=== PATIENT | male | born 1955 | race African-American/Black ===

== ENCOUNTER 2018-06-19 13:42 | Inpatient (IN) | payer OTHER ==
[~2018-06-19] VITALS: Ht 167.6 cm; Wt 67.6 kg
--- OUTSIDE RECORDS SUMMARY | 2018-06-19 14:51 | XMS REPORT | Clinical Summary ---
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 2.65 cm2 [facility] AoV Area, VTI 2.82 cm2 [facility] AoV Vmax 1.25 m/s [facility] IVS/LVPW,2D 0.60 [facility] Left Atrium Dimension 4.06 cm [facility] Anterior LV,d 5.92 cm [facility] LV,s 5.44 cm [facility] PV VMAX 0.89 m/s [facility] RVSP (TR) 38.86 mmHg [facility] TR Vpeak 2.69 mm/s [facility] MV E A ratio 0.79 mmHg [facility] TR pk grad 28.86 mmHg [facility] RVSP 38.86 mmHg [facility] Ao Root Diameter 3.49 cm [facility] LV SYS VOL 143.66 ml [facility] LV TURCIOS VOL 174.32 ml [facility] LV SV Teich 2D 30.66 ml [facility] LV Vol s Teich PSAX 143.66 ml [facility] LVOT CO 4.70 l/min [facility] LVOT HR for LVOT CO 88.32 bpm [facility] AoV Vmn 0.93 [facility] IVS s 2D 0.97 [facility] LV FS Cube 2D 8.08 [facility] LV FS Teich 2D 8.08 [facility] LVPW d Mmode 1.24 [facility] AoV VTI 0.19 m [facility] LV EF,2D 22.32 % [facility] MV AE ratio 1.27 [facility] LVOT Vmn 0.51 [facility] Aov area Vmn 2.53 cm2 [facility] LVOT mean grad 1.19 mmHg [facility] MAX Pred HR 157.58 [facility] 85 of MPHR 133.95 [facility] Calc MPHR 157.58 bpm [facility] IVS pct thck PLAX 12.05 % [facility] LV SV Cube 2D 46.23 ml [facility] LV vol d cube 2D 207.10 ml [facility] LV vol s cube 2D 160.87 ml [facility] LVPW pct thck PLAX 17.62 % [facility] LVPW s PLAX 1.69 cm [facility] MV Decel slope 7.49 m/s2 [facility] Pred Exer Dur R1 8.34 [facility] Pred METS R1 8.64 [facility] TV rest pulmonary artery 38.00 mmHg [facility] pressure Narrative Performed At [facility] The left ventricle chamber size is moderately enlarged. Left ventricular systolic function severely impaired. Left Ventricular ejection fraction is <20%. Left atrium size is mildly dilated. No pericardial effusion There is mild mitral valve regurgitation. Spectral Doppler shows impaired relaxation pattern of left ventricular diastolic filling. Stage II diastolic dysfunction with pseudonormal filling dynamics. Performing Organization Address City/State/Zipcode Phone Number [facility] [address] [place] [address] * Venous blood gas (12/09/2017 6:53 AM) Forward Air Controller/Air Officer NNB [facility]OLOGY AND GENOMIC MEDICINE Collection site RAC [facility] PATHOLOGY AND GENOMIC MEDICINE pH, venous 7.389 7.320 - 7.420 units [facility] OF PATHOLOGY AND GENOMIC MEDICINE pCO2, venous 54.1 (H) 45.0 - 51.0 mmHg [facility] OF PATHOLOGY AND GENOMIC MEDICINE pO2, venous 18.0 (L) 25.0 - 40.0 mmHg [facility] OF PATHOLOGY AND GENOMIC MEDICINE O2 saturation, venous 27.2 (LL) 40.0 - 70.0 % [facility] Comment: PATHOLOGY AND Results called to and read [facility] back by FRANCO MAGALLANES RN/ER (name/location) at 12/09/201707:12 ___ (date/time) by VPS_. Bicarbonate 32.7 (H) 21.0 - 28.0 mEq/L [facility] OF PATHOLOGY AND GENOMIC MEDICINE O2 content 5.6 VOL% [facility] OF PATHOLOGY AND GENOMIC MEDICINE FiO2, inspired O2% 21.0 % [facility] OF PATHOLOGY AND GENOMIC MEDICINE Carboxyhemoglobin 1.0 0.0 - 1.4 % [facility] Comment: PATHOLOGY AND Reference Ranges: GENOMIC MEDICINE Carboxyhemoglobin Non smoker: 0.0 - 2.0% Smoker: 2.1 - 5.0% Heavy smoker: 5.1 - 9% Methemoglobin 0.4 0.0 - 1.0 % [facility] OF PATHOLOGY AND GENOMIC MEDICINE Hemoglobin, blood gas 14.9 14.0 - 18.0 g/dL [facility] OF PATHOLOGY AND GENOMIC MEDICINE Specimen Blood Performing Organization Address City/State/Zipcode Phone Number [facility] [address] [place] [address] PATHOLOGY AND GENOMIC MEDICINE * Urinalysis screen and microscopy, with reflex to culture (12/09/2017 6:50 AM) Specimen site Clean catch [facility] PATHOLOGY AND GENOMIC MEDICINE Color, UA Colorless [facility] OF PATHOLOGY AND GENOMIC MEDICINE Appearance, UA Clear [facility] OF PATHOLOGY AND GENOMIC MEDICINE Specific gravity, UA 1.005 1.001 - 1.035 [facility] OF PATHOLOGY AND GENOMIC MEDICINE pH, UA 8.0 5.0 - 8.5 [facility] OF PATHOLOGY AND GENOMIC MEDICINE Protein, UA Negative Negative [facility] OF PATHOLOGY AND GENOMIC MEDICINE Glucose, UA Negative Negative [facility] OF PATHOLOGY AND GENOMIC MEDICINE Ketones, UA Negative Negative [facility] OF PATHOLOGY AND GENOMIC MEDICINE Bilirubin, UA Negative Negative [facility] OF PATHOLOGY AND GENOMIC MEDICINE Blood, UA Small (A) Negative [facility] OF PATHOLOGY AND GENOMIC MEDICINE Nitrite, UA Negative Negative [facility] OF PATHOLOGY AND GENOMIC MEDICINE Urobilinogen, UA Negative <2.0 [facility] OF PATHOLOGY AND GENOMIC MEDICINE Leukocyte esterase, UA Negative Negative [facility] OF PATHOLOGY AND GENOMIC MEDICINE WBC, UA <1 0 - 1 /HPF [facility] OF PATHOLOGY AND GENOMIC MEDICINE RBC, UA 6 (H) 0 - 5 /HPF [facility] OF PATHOLOGY AND GENOMIC MEDICINE Bacteria, UA None seen None seen [facility] OF PATHOLOGY AND GENOMIC MEDICINE Yeast, UA None seen [facility] OF PATHOLOGY AND GENOMIC MEDICINE Yeast with pseudohyphae, None seen [facility] OF UA PATHOLOGY AND GENOMIC MEDICINE Specimen Urine Performing Organization Address City/[facility]/Zipcode Phone Number [facility] [address] [place] [phone] PATHOLOGY AND GENOMIC MEDICINE * Urine culture (12/09/2017 6:50 AM) Urine culture SEE COMMENTComment: [facility] OF Bacteriuria screen negative. PATHOLOGY AND GENOMIC MEDICINE Specimen Urine Performing Organization Address City/[facility]/Zipcode Phone Number [facility] [address] [place] [phone] PATHOLOGY AND GENOMIC MEDICINE after 06/18/2017 Insurance Payer Benefit Subscriber ID Type Phone Address Plan / Group M[employer] EX[employer]ANGE [employer] xxxxxxxxxxx Exchange FROM [facility] [address]
[2018-06-19 15:24] LABS: BASOPHILS % 0.7 % (0.0-1.0); EOSINOPHILS # (AUTO) 0.1 (0.0-0.4); EOSINOPHILS % 1.5 % (0.0-6.0); HEMATOCRIT 46.7 % (38.2-49.6); HEMOGLOBIN 15.7 g/dL (14.0-18.0); LYMPHOCYTES # (AUTO) 1.8 (1.0-3.2); LYMPHOCYTES % 32.1 % (18.0-39.1); MEAN CORPUSCULAR HEMOGLOBIN 30.8 pg (28-32); MEAN CORPUSCULAR HGB CONC 33.6 g/dL (31-35); MEAN CORPUSCULAR VOLUME 91.7 fL (81-99); MONOCYTES # (AUTO) 0.4 (0.2-0.8); MONOCYTES % 7.8 % (4.4-11.3); NEUTROPHILS # (AUTO) 3.2 (2.1-6.9); NEUTROPHILS % 57.7 % (38.7-80.0); PLATELET COUNT 172 x10e3/uL (140-360); RED BLOOD COUNT 5.09 x10e6/uL (4.3-5.7); RED CELL DISTRIBUTION WIDTH 15.3 % (11.7-14.4)
[2018-06-19 15:32] LABS: INR 1.05; PARTIAL THROMBOPLASTIN TIME 27.2 seconds (23.8-35.5); PROTHROMBIN TIME 14.7 seconds (11.9-14.5)
[2018-06-19 15:42] LABS: ALBUMIN 3.4 g/dL (3.5-5.0); ALBUMIN/GLOBULIN RATIO 1.1 (0.8-2.0); ANION GAP 14.5 mmol/L (8-16); CALCIUM 9.3 mg/dL (8.4-10.2); CREATININE, SERUM 1.34 mg/dL (0.72-1.25); POTASSIUM 3.5 mmol/L (3.5-5.1)
[2018-06-19 15:48] LABS: CREATINE KINASE MB 4.7 ng/mL (0-5.0)
[2018-06-19] MEDS ORDERED: FUROSEMIDE INJ 10 MG/ML 4 ML VIAL IV ONE (16:30)
--- NOTE | 2018-06-19 16:44 | Diagnostic Imaging Report ---
EXAMINATION: CHEST 2 VIEWS INDICATION: ^SOB ^[id number] ^[id number] ^N COMPARISON: None FINDINGS: PA and lateral views TUBES and LINES: None. LUNGS: Lungs are well inflated. Bilateral lower lobe predominant patchy airspace opacities. Bilateral central pulmonary congestion. PLEURA: Possible trace right pleural effusion. No pneumothorax. HEART AND MEDIASTINUM: Moderate enlargement of the cardiac silhouette. BONES AND SOFT TISSUES: No acute osseous lesion. Soft tissues are unremarkable. UPPER ABDOMEN: No free air under the diaphragm. IMPRESSION: Bilateral central pulmonary vascular congestion with suspected multifocal pneumonia in the proper clinical setting. Continue to follow-up. Signed by: Dr. Mercedes Hilario M.D. on 06/19/2018 4:41 PM
[2018-06-19] MEDS ORDERED: SODIUM CHLORIDE FLUSH 10 ML SYR INJ PRN (17:15)
[2018-06-19] MEDS ORDERED: LASIX20 MG PO (17:35)
[2018-06-19] MEDS ORDERED: POTASSIUM CHLO10 ME1 PO (17:35)
[2018-06-19] MEDS ORDERED: ENTRESTO PO (17:35)
[2018-06-19] MEDS ORDERED: L-CARNITINE500 M1 PO (17:35)
[2018-06-19] MEDS ORDERED: COQ-10100 MG PO (17:35)
[2018-06-19] MEDS ORDERED: PENTOXIFYLLINE400 MG PO (17:35)
[2018-06-19] MEDS: CEFTRIAXONE SOD 1 GM VIAL IV SCH (17:46)
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
--- OUTSIDE RECORDS SUMMARY | 2018-06-19 17:51 | XMS REPORT ---
Author [facility] Address Unknown Phone Unavailable Care Team Providers Care [employer] Name Role Phone Randell BULL Unavailable Unavailable Problems This patient has no known problems. Allergies, Adverse Reactions, Alerts This patient has no known allergies or adverse reactions. Medications This patient has no known medications. Results Test Description Test Time Test Comments Text Results Atomic Results Result Comments CHEST 2 VIEWS 2018-06-19 16:40:[address] [address] Patient Name: STALIN OSBORN MR #: [id number] : 1955 Age/Sex: 62/M Req #: [id number] Adm Physician: Ordered by: LASHAE BULL MD Report #: [id number] Location: ER Room/Bed: Procedure: [id number] DX/CHEST 2 VIEWS Exam Date: 06/19/18 Exam Time: 1550 REPORT STATUS: Signed EXAMINATION: CHEST 2 VIEWS INDICATION: SOB [id number] N COMPARISON: None FINDINGS: PA and lateral views TUBES and LINES: None. LUNGS: Lungs are well inflated. Bilateral lower lobe predominant patchy airspace opacities. Bilateral central pulmonary congestion. PLEURA: Possible trace right pleural effusion. No pneumothorax. HEART AND MEDIASTINUM: Moderate enlargement of the cardiac silhouette. BONES AND SOFT TISSUES: No acute osseous lesion. Soft tissues are unremarkable. UPPER ABDOMEN: No free air under the diaphragm. IMPRESSION: Bilateral central pulmonary vascular congestion with suspected multifocal pneumonia in the proper clinical setting. Continue to follow-up. Signed by: Dr. Buck Fairbanks M.D. on 06/19/2018 4:41 PM Dictated By: BUCK FAIRBANKS MD 40 Transcribed By: ERNIE on 06/19/181640 COPY TO: LASHAE BULL MD
[2018-06-19 18:45] VITALS: BP 129/80
--- NOTE | 2018-06-19 18:56 | Diagnostic Imaging Report ---
EXAMINATION: CHEST SINGLE (PORTABLE) INDICATION: ^CHF ^[id number] ^1830 COMPARISON: Chest radiograph 06/19/2018 at 1838 FINDINGS: AP view TUBES and LINES: None. LUNGS: Lungs are well inflated. Hilar fullness with interstitial opacities. Bibasilar opacities, likely atelectasis. PLEURA: Small pleural effusions bilaterally. HEART AND MEDIASTINUM: Stable enlargement of the cardiac silhouette. BONES AND SOFT TISSUES: No acute osseous lesion. Soft tissues are unremarkable. UPPER ABDOMEN: No free air under the diaphragm. IMPRESSION: Findings suggestive of cardiogenic edema with interstitial edema, small pleural effusions, and enlarged cardiac silhouette. Bibasilar opacities likely represent atelectasis from adjacent effusions. Superimposed infection not excluded. Signed by: DR. Lisandro Palacios MD on 06/19/2018 6:53 PM
[2018-06-19 20:00] VITALS: BP 129/80
[2018-06-19 20:14] VITALS: BP 129/80
[2018-06-19 20:31] VITALS: BP 123/79
[2018-06-19 23:51] LABS: CREATINE KINASE MB 4.3 ng/mL (0-5.0)
[2018-06-20] VITALS (7 sets, daily range): BP systolic 121–139; BP diastolic 86–102
[2018-06-20 05:10] LABS: BASOPHILS # (AUTO) 0.1 (0.0-0.1); EOSINOPHILS # (AUTO) 0.1 (0.0-0.4); EOSINOPHILS % 2.5 % (0.0-6.0); HEMOGLOBIN 14.5 g/dL (14.0-18.0); LYMPHOCYTES # (AUTO) 1.6 (1.0-3.2); LYMPHOCYTES % 30.7 % (18.0-39.1); MEAN CORPUSCULAR HEMOGLOBIN 30.5 pg (28-32); MEAN CORPUSCULAR HGB CONC 33.7 g/dL (31-35); MEAN CORPUSCULAR VOLUME 90.5 fL (81-99); MONOCYTES # (AUTO) 0.4 (0.2-0.8); MONOCYTES % 7.4 % (4.4-11.3); NEUTROPHILS % 58.4 % (38.7-80.0); PLATELET COUNT 157 x10e3/uL (140-360); RED BLOOD COUNT 4.75 x10e6/uL (4.3-5.7); RED CELL DISTRIBUTION WIDTH 15.3 % (11.7-14.4)
[2018-06-20 05:30] LABS: ANION GAP 15.5 mmol/L (8-16); BLOOD UREA NITROGEN 14 mg/dL (7-26); BUN/CREATININE RATIO 10 (6-25); CALCIUM 8.6 mg/dL (8.4-10.2); CARBON DIOXIDE 27 mmol/L (22-29); CHLORIDE 105 mmol/L (98-107); CREATININE, SERUM 1.39 mg/dL (0.72-1.25); EST GLOMERULAR FILTRATION RATE > 60 ML/MIN (60-); GLUCOSE 107 mg/dL (74-118); POTASSIUM 3.5 mmol/L (3.5-5.1); SODIUM 144 mmol/L (136-145)
[2018-06-20 05:50] LABS: CREATINE KINASE MB 4.5 ng/mL (0-5.0)
--- NOTE | 2018-06-20 07:26 | Diagnostic Imaging Report ---
EXAMINATION: CHEST SINGLE (PORTABLE) INDICATION: ^CHF ^[id number] ^0530 ^N COMPARISON: Chest radiograph 06/19/2018 1530 9:00 PM FINDINGS: AP view TUBES and LINES: None. LUNGS: Lungs are well inflated. Worsening bilateral pulmonary edema. Bibasilar atelectasis. PLEURA: Possible trace left pleural effusion. HEART AND MEDIASTINUM: Stable moderate enlargement of the cardiac silhouette. BONES AND SOFT TISSUES: No acute osseous lesion. Soft tissues are unremarkable. UPPER ABDOMEN: No free air under the diaphragm. IMPRESSION: Bilateral pulmonary edema, worse since prior exam. Signed by: Dr. Mercedes Hilario M.D. on 06/20/2018 7:22 AM
[2018-06-20] MEDS ORDERED: FUROSEMIDE INJ 10 MG/ML 4 ML VIAL IV SCH (09:00)
[2018-06-20] MEDS: POTASSIUM CHLORIDE 20 MEQ TAB CR PO SCH ×2 (09:06→16:43)
[2018-06-20] MEDS: FUROSEMIDE INJ 10 MG/ML 2 ML VIAL IV SCH ×2 (09:06→16:43)
--- NOTE | 2018-06-20 13:20 | Consultation ---
DATE OF CONSULTATION: CARDIOLOGY CONSULTATION REASON FOR CONSULTATION: Shortness of breath. HISTORY OF PRESENT ILLNESS: Mr. Tyler is a pleasant 62-year-old man with a history of hypertension, who presents to [facility] via the emergency department with complaints of progressive shortness of breath and chest discomfort. He was noted to have central pulmonary vascular congestion and possible multifocal pneumonia versus pulmonary edema, moderate enlargement of cardiac silhouette on chest x-ray. He was initiated on furosemide 20 mg IV b.i.d. as well as ceftriaxone with some improvement in his symptoms. He denies any recent fevers. He has been afebrile throughout his hospital stay. Denies any prior cardiac history. Feels better. No edema or orthopnea reported, no paroxysmal nocturnal dyspnea. REVIEW OF SYSTEMS: A 12-system review negative except for as noted above. PAST MEDICAL HISTORY: Significant for hypertension. SOCIAL HISTORY: Denies smoking, alcohol or drugs. FAMILY HISTORY: Good family support. Has a family history of hypertension. PHYSICAL EXAMINATION VITAL SIGNS: Temperature 98.9, heart rate 94, respiratory rate is 21, blood pressure 139/94, O2 sat 94% on 2 liters per minute nasal cannula. GENERAL: No acute distress. NECK: JVD elevated to lower third of neck. No carotid bruits. CHEST: Decreased breath sounds in bilateral bases and scattered rales. CARDIOVASCULAR: Regular rate and rhythm. Normal S1 and S2. ABDOMEN: Soft. EXTREMITIES: Trace edema. CARDIOVASCULAR MEDICATIONS: Reviewed. 1. Furosemide 20 mg IV b.i.d. 2. Potassium chloride 20 mEq b.i.d. STUDIES: Reviewed. White blood cells 5.1, hemoglobin 14.5, platelets 157. INR 1.05, PTT 27. Creatinine 1.3, sodium 144, potassium 3.5, bicarbonate 27, glucose 107. Serial cardiac enzymes negative. BNP 3400. Total protein 6.6, albumin 3.4. CHEST X-RAY: As described above. ELECTROCARDIOGRAM: Sinus rhythm with PVCs and left ventricular hypertrophy, QRS widening, nonspecific repolarization abnormalities. ASSESSMENT 1. Clinically in acute heart failure, enlarged cardiomediastinal silhouette, left ventricular hypertrophy by electrocardiogram criteria. 2. Premature ventricular contractions. 3. Hypertension, history of. 4. Chest x-ray infiltrates concerning for pneumonia versus pulmonary edema. RECOMMENDATIONS 1. I agree with diuretic trial. 2. Echocardiogram has been ordered and is pending. Will review once available. 3. Uptitrate antihypertensives and adjust medications accordingly. 4. Continue coverage with antibiotics for now. Job#: [id number] EV
[2018-06-20] MEDS: CARVEDILOL 3.125 MG TAB PO SCH (16:43)
[2018-06-20] MEDS: CEFTRIAXONE SOD 1 GM VIAL IV SCH (16:43)
--- NOTE | 2018-06-20 17:32 | History and Physical ---
HISTORY OF PRESENT ILLNESS: Patient is a 62-year-old male with past medical history positive for hypertension and congestive heart failure. Came here with shortness of breath when lying down and dyspnea on exertion. Patient was found to have acute pulmonary edema and was started on IV Lasix. He is doing a little better right now. REVIEW OF SYSTEMS CARDIOVASCULAR: No chest pain or palpitations. RESPIRATORY: He does complain of shortness of breath when lying down and when walking. He has orthopnea. GASTROINTESTINAL: No nausea. No vomiting. No diarrhea. GENITOURINARY: No frequency. No dysuria. ALLERGIES: NOT ALLERGIC TO ANY MEDICATION. SOCIAL HISTORY: He does not smoke. He does not drink. PAST MEDICAL HISTORY: Positive for hypertension and congestive heart failure. PHYSICAL EXAMINATION: Vital signs: Blood pressure 125/88, temperature 98.1, heart rate 97 per minute, respiratory rate 19 per minute. Oxygen saturation 97%. Chest x-ray showed congestive failure. BMP showed sodium 144, potassium 3.5, chloride 105, CO2 27, BUN 14, creatinine 1.39. Glucose 107. On the CBC, white blood count 5.15; hemoglobin 14.5; hematocrit 43.0; platelet count 157,000. PT 14.7, INR 1.05, PTT 27.2. AST 50, ALT 126, total bilirubin 1.3, alkaline phosphatase 68. BNP is extremely elevated. FINAL IMPRESSION 1. Gkoyi-ga-yfbnuvy systolic congestive heart failure. 2. Elevated liver function tests. 3. Hypertension with congestive heart failure. 4. Hypertension with chronic renal insufficiency. 5. Chronic renal insufficiency, stage 3. PLAN OF TREATMENT: We are going to continue ceftriaxone 1 gram IV once a day for the concerns about pneumonia. Continue furosemide 20 mg IV push twice a day, potassium chloride 20 mEq twice a day, carvedilol 3.125 mg twice a day and losartan 12.5 mg daily. Actually, the patient is taking Zestril, so we are going to discontinue the losartan. We are going to evaluate the elevated LFTs with a liver ultrasound, antinuclear antibodies, hepatitis profile, iron, ceruloplasmin, antimitochondrial antibodies. I am going to get a gastroenterology consult with Dr. Trey Babcock. Dr. Guillermo Felix, retail team leader, has seen the patient also. The EKG showed sinus rhythm with occasional PVCs and left ventricular hypertrophy. Case discussed with family. Time spent 45 minutes. Job#: [id number]
--- NOTE | 2018-06-20 18:06 | Diagnostic Imaging Report ---
EXAM: Right Upper Quadrant Ultrasound INDICATION: Elevated LFTs. ^elevated LFT COMPARISON: None. TECHNIQUE: Transverse and longitudinal images of the right upper abdomen were obtained. FINDINGS: Liver: Size: 14.5 cm in the right midclavicular line, normal Appearance: Normal echogenicity, smooth contour Mass: No focal masses Gallbladder: Stones/Sludge: None Wall: 0.2 cm Appearance: No pericholecystic fluid or hydrops. Gallbladder fold. 0.2 cm lesion along the nondependent aspect of the body without comet tail artifact or shadowing, likely a polyp. Sonographic Mejia's Sign: Negative Bile Ducts: Intrahepatic Ducts: No dilatation Extrahepatic Ducts: Common bile duct measures 0.5 cm, no dilatation Pancreas: Incompletely visualized due to overlying bowel gas, but no abnormality identified involving the visualized portions of the pancreas. Right Kidney: Location: Pelvis. Size: 7.2 cm Echogenicity: Normal Parenchymal thickness: Normal Collecting system: No hydronephrosis Stones: None Cyst/Mass: None Vessels: Aorta: Visualized portions are normal Inferior Vena Cava: Visualized portions are normal Main Portal Vein: 0.9 cm, normal size with hepatopetal flow. Free Fluid: Small right pleural effusion. IMPRESSION: 1. Normal echogenicity of the liver. No hepatomegaly. No biliary ductal dilatation. 2. Tiny gallbladder polyp. 3. Small right kidney located in the pelvis. 4. Small right pleural effusion. Signed by: DR. Lisandro Palacios MD on 06/20/2018 6:03 PM
[2018-06-20] MEDS ORDERED: IBUPROFEN 600 MG TAB PO PRN (22:00)
[2018-06-20] MEDS: PENTOXIFYLLINE 400 MG TAB CR PO SCH (22:10)
[2018-06-21] VITALS (7 sets, daily range): BP systolic 121–164; BP diastolic 86–99
[2018-06-21 06:06] LABS: ALBUMIN 3.1 g/dL (3.5-5.0); ALBUMIN/GLOBULIN RATIO 1.1 (0.8-2.0); ANION GAP 16.1 mmol/L (8-16); CALCIUM 8.9 mg/dL (8.4-10.2); CREATININE, SERUM 1.54 mg/dL (0.72-1.25); POTASSIUM 4.1 mmol/L (3.5-5.1)
[2018-06-21] MEDS: FUROSEMIDE INJ 10 MG/ML 2 ML VIAL IV SCH ×2 (09:14→17:29)
[2018-06-21] MEDS: LOSARTAN POTASSIUM 25 MG TAB PO SCH (09:14)
[2018-06-21] MEDS: CARVEDILOL 3.125 MG TAB PO SCH ×2 (09:14→17:30)
[2018-06-21] MEDS: POTASSIUM CHLORIDE 20 MEQ TAB CR PO SCH ×2 (09:21→17:30)
[2018-06-21] MEDS: PENTOXIFYLLINE 400 MG TAB CR PO SCH ×3 (09:21→21:05)
--- NOTE | 2018-06-21 13:20 | Progress Note ---
DATE: INTERNAL MEDICINE PROGRESS NOTE SUBJECTIVE: A 62-year-old male patient came here with acute exacerbation of systolic congestive heart failure. He is feeling better today. PHYSICAL EXAM: VITAL SIGNS: Blood pressure 136/98. Temperature 97.7. Heart rate 60 per minute, respiratory rate 18 per minute, oxygen saturation 100%. HEART: Shows regular rhythm. Normal S1 and S2 sounds. LUNGS: Clear bilaterally. ABDOMEN: Soft. EXTREMITIES: Show no evidence of cyanosis, edema or trauma. On the BMP: Sodium 143, potassium 4.1, chloride 103, CO2 28, BUN 20, creatinine 1.54, glucose 132. On the CBC: White blood count 5.15, hemoglobin 14.5, hematocrit 43.0, platelet count 157,000. PT 14.7, INR 1.05, PTT 27.2. AST 41, ALT 106, total bilirubin 0.8, alkaline phosphatase of 64. Echocardiogram has been done and it showed a very low ejection fraction of 15% to 20%, trace aortic insufficiency, mild to moderate mitral regurgitation and trace mild pulmonary insufficiency. FINAL IMPRESSION: 1. Acute on chronic systolic congestive heart failure. 2. Hypertension with chronic insufficiency. 3. Chronic insufficiency stage 3 4. Elevated liver function tests. PLAN OF TREATMENT: Continue with Lasix 20 mg twice a day. Potassium 20 mEq twice a day. Carvedilol 3.125 mg twice a day. Losartan 12.5 mg daily. Pentoxifylline 400 mg 3 times a day. Ibuprofen 600 mg q.6 hours is going to be discontinued because of the renal insufficiency. Because of a questionable pneumonia, he is on ceftriaxone 1 gram IV once a day. Cardiology consult with Dr. Felix has been requested along with a consult with Dr. Trey Babcock for gastroenterology due to elevated LFTs. Workup for the LFTs is in progress including liver ultrasound, antinuclear antibodies, iron, ferritin, ceruloplasmin level, antimitochondrial antibiotics. Tentative discharge tomorrow. Job#: [id number] AJNA
[2018-06-21] MEDS: ASPIRIN 81 MG CHEW TAB PO SCH (14:00)
[2018-06-21] MEDS: SODIUM CHLORIDE 0.9% 1000ML 1,000 ML IV SCH ×2 (14:00→21:15)
--- NOTE | 2018-06-21 14:23 | Progress Note ---
DATE: June 21, 2018 CARDIOLOGY PROGRESS NOTE SUBJECTIVE: No complaints. OBJECTIVE VITAL SIGNS: Temperature 97 degrees, heart rate 97, respiratory rate 18, blood pressure 134/96, O2 sat 98% on 2 liters per minute nasal cannula. GENERAL: No acute distress. Alert. NECK: No JVD. CHEST: Clear to auscultation. CARDIOVASCULAR: Regular rate and rhythm. Normal S1 and S2. No S3, no S4. No murmurs or rubs. ABDOMEN: Soft, nontender. EXTREMITIES: Trace edema. CARDIOVASCULAR MEDICATIONS: Reviewed. 1. Trental 400 mg t.i.d. 2. Losartan 12.5 mg daily. 3. Carvedilol 3.125 mg every 12 hours. 4. Furosemide 20 mg b.i.d. IV. STUDIES: White blood cells 5.1, hemoglobin 14.5, platelets 157. INR 1. Sodium 143, potassium 4.1, chloride 103, bicarbonate 28, BUN 20, creatinine 1.5, glucose 132, calcium 8.9. AST is 41, ALT 106, alk phos 64. Peak troponin was 0.06. BNP was 3400. Total protein 6, albumin 3.1. TELEMETRY: In sinus rhythm. ASSESSMENT 1. Acute severe systolic heart failure with left ventricular ejection fraction 20% to 25%, new diagnosis. 2. Premature ventricular contractions. 3. Left ventricular hypertrophy on electrocardiogram. 4. Hypertension with hypertensive heart disease with heart failure. 5. Pulmonary edema. 6. Renal failure from acute on chronic. RECOMMENDATIONS: Given findings, will benefit from coronary angiography and possible intervention. Indications, alternatives, risks and benefits have been discussed with patient. Will schedule. Somewhat elevated risk for contrast-induced nephropathy given labile renal function. Suspect moderate baseline chronic kidney disease with labile function given ongoing diuresis and cardiorenal component possibly. Add aspirin. Job#: [id number] EV
[2018-06-21 16:33] LABS: ANION GAP 13.1 mmol/L (8-16); CALCIUM 8.8 mg/dL (8.4-10.2); CREATININE, SERUM 1.51 mg/dL (0.72-1.25); POTASSIUM 4.1 mmol/L (3.5-5.1)
[2018-06-21] MEDS: CEFTRIAXONE SOD 1 GM VIAL IV SCH (17:30)
[2018-06-21] MEDS: ACETAMINOPHEN 325 MG TAB PO PRN ×2 (17:58→22:00)
[2018-06-22] VITALS (9 sets, daily range): BP systolic 99–139; BP diastolic 52–108
[2018-06-22] MEDS: SODIUM CHLORIDE 0.9% 1000ML 1,000 ML IV SCH (05:00)
[2018-06-22 06:03] LABS: BASOPHILS % 0.4 % (0.0-1.0); EOSINOPHILS # (AUTO) 0.1 (0.0-0.4); EOSINOPHILS % 1.8 % (0.0-6.0); HEMATOCRIT 44.2 % (38.2-49.6); HEMOGLOBIN 14.9 g/dL (14.0-18.0); LYMPHOCYTES # (AUTO) 1.3 (1.0-3.2); LYMPHOCYTES % 26.2 % (18.0-39.1); MEAN CORPUSCULAR HGB CONC 33.7 g/dL (31-35); MEAN CORPUSCULAR VOLUME 92.1 fL (81-99); MONOCYTES # (AUTO) 0.3 (0.2-0.8); MONOCYTES % 5.8 % (4.4-11.3); NEUTROPHILS # (AUTO) 3.3 (2.1-6.9); NEUTROPHILS % 65.4 % (38.7-80.0); PLATELET COUNT 166 x10e3/uL (140-360); RED CELL DISTRIBUTION WIDTH 15.3 % (11.7-14.4)
[2018-06-22 06:41] LABS: ALANINE AMINOTRANSFERASE 95 IU/L (0-55); ALBUMIN 3.1 g/dL (3.5-5.0); ALBUMIN/GLOBULIN RATIO 1.1 (0.8-2.0); ALKALINE PHOSPHATASE 57 IU/L (40-150); BLOOD UREA NITROGEN 20 mg/dL (7-26); BUN/CREATININE RATIO 15 (6-25); CALCIUM 8.9 mg/dL (8.4-10.2); CARBON DIOXIDE 26 mmol/L (22-29); CHLORIDE 106 mmol/L (98-107); CREATININE, SERUM 1.33 mg/dL (0.72-1.25); EST GLOMERULAR FILTRATION RATE > 60 ML/MIN (60-); GLUCOSE 149 mg/dL (74-118); SODIUM 143 mmol/L (136-145)
[2018-06-22] MEDS: ASPIRIN 81 MG CHEW TAB PO SCH (09:00)
[2018-06-22] MEDS ORDERED: HEPARIN SOD/SOD CHLORIDE 2,000 ML ONE (09:33)
[2018-06-22] MEDS ORDERED: LIDOCAINE HCL 1% LOCAL INJ 20 ML VIAL ONE (09:33)
[2018-06-22] MEDS ORDERED: IOPAMIDOL 370 MG/ML 200 ML INFUS..BTL INJ ONE (09:34)
[2018-06-22] MEDS ORDERED: HEPARIN SOD (PORCINE) 1000 UNIT/ML 30ML ONE (09:37)
[2018-06-22] MEDS ORDERED: VERAPAMIL HCL 2.5 MG/ML 2 ML VIAL ONE (09:37)
[2018-06-22] MEDS ORDERED: FENTANYL CITRATE/PF 100MCG/2 ML INJ ONE (09:38)
[2018-06-22] MEDS ORDERED: MIDAZOLAM HCL 2 MG/2 ML VIAL ONE (09:38)
[2018-06-22] MEDS ORDERED: NITROGLYCERIN/D5W 200 MCG/ML 0 ML ONE (09:39)
[2018-06-22] MEDS ORDERED: SODIUM CHLORIDE 0.9% 1000ML 1,000 ML ONE (09:39)
--- NOTE | 2018-06-22 10:52 | Progress Note ---
DATE: June 22, 2018 CARDIOLOGY PROGRESS NOTE SUBJECTIVE: No complaints. OBJECTIVE VITALS: Temperature 97 degrees, heart rate 104, respiratory rate 18, blood pressure 133/104, O2 sat 91% on nasal cannula. GENERAL: No acute distress. Alert. NECK: No JVD. CHEST: Clear to auscultation. CARDIOVASCULAR: Regular rate and rhythm. Normal S1 and S2. No S3. No S4. ABDOMEN: Soft. EXTREMITIES: No edema. CARDIOVASCULAR MEDICATIONS 1. Carvedilol 3.125 mg b.i.d. 2. 25 mg t.i.d. 3. Furosemide 20 mg b.i.d IV. 4. Aspirin 81 mg daily. 5. Losartan 12.5 mg daily. STUDIES: Reviewed. Creatinine 1.3, potassium 4. ASSESSMENT 1. Status post cardiac catheterization today with no significant obstructive coronary artery disease. 2. Nonischemic cardiomyopathy. 3. Acute severe systolic heart failure, new diagnosis. 4. Hypertension, uncontrolled: Left ventricular ejection fraction 20% to 25%. 5. Left ventricular hypertrophy. 6. Pulmonary edema. 7. Renal failure, [id number]. 8. Hypertensive heart disease with heart failure. RECOMMENDATIONS: Nonischemic cardiomyopathy. No indications for coronary intervention at this point in time. Continue up titration of beta elizabeth and LOLA inhibitor as blood pressure allows. Transition to oral diuretics. Consider Life Vest. Will need followup after 3 months of ejection fraction to assess ICD candidacy. Case discussed with the patient and family members. Job#: [id number] EILEEN
--- NOTE | 2018-06-22 13:17 | Operative Report ---
DATE OF PROCEDURE: June 22, 2018 CARDIAC CATHETERIZATION REPORT PROCEDURE INDICATION: Severe systolic heart failure with LVEF 20% to 25%, new diagnosis. PROCEDURES PERFORMED 1. Selective coronary angiography. 2. Right common femoral artery 6-Mosotho Angio-Seal closure. PROCEDURE COMPLICATIONS: None. ESTIMATED BLOOD LOSS: Less than 15 mL. PROCEDURE SUMMARY: After consent was obtained, patient was prepped and draped in a sterile fashion, and the right femoral site was locally infiltrated with 2% lidocaine. Access was obtained using micropuncture kit, and a short 6-Mosotho sheath was placed. All catheters were railed over a leading wire to their respective positions. A JL-4 and a JR-4 6-Mosotho catheters were used for engagement of left main and then the right coronary artery respectively. The aortic valve was not crossed. The following findings were observed: Luminal irregularities were noted throughout the coronary trees with no evidence of significant obstructive coronary artery disease. 1. The left main is large in caliber with luminal irregularities, gives an LAD and a circumflex. 2. The LAD has luminal irregularities and multiple diagonals and septal perforators and courses around to the apex where it wraps around and ends. 3. The circumflex has luminal irregularities and gives 2 obtuse marginals. 4. The right coronary artery has luminal irregularities and gives a terminal RPDA and RPLV. CONCLUSION 1. Nonischemic cardiomyopathy. 2. Severe systolic heart failure. RECOMMENDATIONS: Medical aggressive therapy. Job#: [id number] EV
[2018-06-22] MEDS: LOSARTAN POTASSIUM 25 MG TAB PO SCH (14:35)
[2018-06-22] MEDS: FUROSEMIDE INJ 10 MG/ML 2 ML VIAL IV SCH (14:35)
[2018-06-22] MEDS: POTASSIUM CHLORIDE 20 MEQ TAB CR PO SCH (14:35)
[2018-06-22] MEDS: CEFTRIAXONE SOD 1 GM VIAL IV SCH (16:41)
[2018-06-22] MEDS ORDERED: COREG3.125 MG PO (16:43)
[2018-06-22] MEDS ORDERED: LOSARTAN POTASS25 MG PO (16:43)
[2018-06-22] MEDS ORDERED: ASPIRIN81 MG PO (16:44)
[2018-06-22] MEDS ORDERED: CARVEDILOL 3.125 MG TAB PO SCH (17:00)
--- NOTE | 2018-06-22 17:46 | Discharge Summary ---
HISTORY OF PRESENT ILLNESS: A 62-year-old male who had a past medical history positive for congestive heart failure came here with shortness of breath. He was found to have acute systolic congestive heart failure. Started on Lasix, Coreg and losartan. Patient is doing much, much better. Patient had a cardiac cath done by Dr. Felix. It showed nonischemic cardiomyopathy and severe systolic heart failure. PHYSICAL EXAM: Blood pressure 99/52, temperature 96.7, heart rate 108 per minute, respiratory rate 18 per minute, oxygen saturation 99%. HEART: Shows regular rhythm. Normal S1 and S2 sounds. LUNGS: Clear bilaterally. ABDOMEN: Soft. EXTREMITIES: Show no evidence of cyanosis, edema or trauma. FINAL IMPRESSIONS: 1. Acute exacerbation of systolic congestive heart failure, nonischemic in nature. 2. Chronic renal insufficiency stage 3. PLAN OF TREATMENT: Continue with Lasix 20 mg twice a day. Potassium chloride 20 mEq twice a day. Carvedilol 6.25 mg twice a day. Losartan 12.5 mg daily. Tylenol 325 mg q.4 hours[address] Felix also wrote a prescription for Plavix. Follow with primary care physician and Dr. Rust, cardiology, in a week. He had a LifeVest also. DONAVON CHRISTINE MD Job#: [id number] EV
--- NOTE | 2018-06-23 01:07 | Discharge Summary ---
ADDENDUM Patient is told to be off work for 2 weeks and he is not supposed to climb or do any type of intense physical activity and to come to the hospital. He is tolerating the fluid without getting shortness of breath or chest pains. DONAVON CHRISTINE MD Job#: [id number] MATT
== END 2018-06-22 17:17 | disposition home or self-care (01) | DRG 286 ==
LOC: ER 13:42 → ERHOLD 17:48 → IMCU 18:39 → OBSVTOIN 06-20 17:20 → MED/SURG 06-20 21:17
PROVIDERS: ADMIT Internal Medicine; ATTEND Internal Medicine
PROC: 4A023N7 Measurement of Cardiac Sampling and Pressure, Left Heart, Percutaneous Approach (ICD-10-PCS; principal; 2018-06-22)
PROC: B2111ZZ Fluoroscopy of Multiple Coronary Arteries using Low Osmolar Contrast (ICD-10-PCS; 2018-06-22)
DX: I13.0 Hypertensive heart and chronic kidney disease with heart failure and stage 1 through stage 4 chronic kidney disease, or unspecified chronic kidney disease (principal); I50.23 Acute on chronic systolic (congestive) heart failure; J81.1 Chronic pulmonary edema; I42.9 Cardiomyopathy, unspecified; E11.65 Type 2 diabetes mellitus with hyperglycemia; I25.10 Atherosclerotic heart disease of native coronary artery without angina pectoris; Z95.1 Presence of aortocoronary bypass graft; Z87.891 Personal history of nicotine dependence; Z79.01 Long term (current) use of anticoagulants; Z95.2 Presence of prosthetic heart valve; N18.3 Chronic kidney disease, stage 3 (moderate); I49.3 Ventricular premature depolarization
CPT/HCPCS: 36415; 71045; 71046; 76705; 80048; 80053; 82390; 82550; 82553; 83540; 83880; 84484; 85025; 85610; 85730; 86039; 86255; 93005; 93306; 93454; 99284; C1766; C1769; G0378; J0696; J1644; J1940; J2001; J2250; J7030; Q9967

== ENCOUNTER 2018-06-23 00:57 | Emergency (ER) | payer OTHER ==
[~2018-06-23] VITALS: Ht 167.6 cm; Wt 67.6 kg
[~2018-06-23 00:57] MED LIST: ASPIRIN81 MG PO; COQ-10100 MG PO; COREG3.125 MG PO; ENTRESTO PO; L-CARNITINE500 M1 PO; LASIX20 MG PO; LOSARTAN POTASS25 MG PO; PENTOXIFYLLINE400 MG PO; POTASSIUM CHLO10 ME1 PO
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
[2018-06-23 01:55] LABS: BASOPHILS % 0.5 % (0.0-1.0); EOSINOPHILS % 0.3 % (0.0-6.0); HEMATOCRIT 44.4 % (38.2-49.6); HEMOGLOBIN 14.9 g/dL (14.0-18.0); LYMPHOCYTES # (AUTO) 1.2 (1.0-3.2); LYMPHOCYTES % 19.3 % (18.0-39.1); MEAN CORPUSCULAR HEMOGLOBIN 30.8 pg (28-32); MEAN CORPUSCULAR HGB CONC 33.6 g/dL (31-35); MEAN CORPUSCULAR VOLUME 91.7 fL (81-99); MONOCYTES # (AUTO) 0.4 (0.2-0.8); NEUTROPHILS # (AUTO) 4.5 (2.1-6.9); NEUTROPHILS % 73.6 % (38.7-80.0); PLATELET COUNT 170 x10e3/uL (140-360); RED BLOOD COUNT 4.84 x10e6/uL (4.3-5.7); RED CELL DISTRIBUTION WIDTH 15.3 % (11.7-14.4)
[2018-06-23 02:08] LABS: ANION GAP 17.5 mmol/L (8-16); CALCIUM 9.2 mg/dL (8.4-10.2); CREATININE, SERUM 1.45 mg/dL (0.72-1.25); POTASSIUM 4.5 mmol/L (3.5-5.1)
[2018-06-23 02:15] LABS: CREATINE KINASE MB 4.2 ng/mL (0-5.0)
[2018-06-23] MEDS ORDERED: FUROSEMIDE INJ 10 MG/ML 4 ML VIAL IV ONE (02:45)
--- NOTE | 2018-06-23 03:26 | Diagnostic Imaging Report ---
EXAMINATION: CHEST 2 VIEWS INDICATION: Congestive heart failure COMPARISON: 06/19/2018 FINDINGS: TUBES and LINES: None. LUNGS: Lungs are not well inflated. There are bibasilar atelectasis. There is perihilar interstital opacities, consistent with interstitial edema. PLEURA: Small bilateral pleural effusions HEART AND MEDIASTINUM: Cardiac size is moderately enlarged. There are atherosclerotic calcifications within the aorta. BONES AND SOFT TISSUES: No acute osseous lesion. Soft tissues are unremarkable. UPPER ABDOMEN: No free air under the diaphragm. IMPRESSION: Findings are consistent with recurrent cardiogenic pulmonary edema and bilateral pleural effusions Signed by: Dr. Kraig Holden M.D. on 06/23/2018 3:23 AM
[2018-06-23] MEDS ORDERED: CARVEDILOL 3.125 MG TAB PO ONE (04:30)
[2018-06-23] MEDS ORDERED: LORAZEPAM INJ 2 MG/ML VIAL IV ONE (04:30)
[2018-06-23 05:46] VITALS: BP 120/96
== END 2018-06-23 06:03 | disposition home or self-care (01) ==
LOC: ER 00:57
DX: R06.00 Dyspnea, unspecified (principal); I50.22 Chronic systolic (congestive) heart failure; I50.1 Left ventricular failure, unspecified; I10 Essential (primary) hypertension
CPT/HCPCS: 36415; 71046; 80048; 82550; 82553; 83880; 84484; 85025; 93005; 96374; 96375; 99284; J1940; J2060